=== PATIENT | male | born 2000 | race African-American/Black ===

== ENCOUNTER 2023-01-06 23:06 | Emergency (ER) | payer SELFPAY ==
[~2023-01-06] VITALS: Ht 180.3 cm; Wt 86.0 kg
[2023-01-07] MEDS ORDERED: IBUP-2029 PO (00:30)
[2023-01-07] MEDS ORDERED: IBUPROFEN 600MG TABLET PO ONE (00:30)
[2023-01-07 01:15] VITALS: BP 129/83
== END 2023-01-07 00:30 | disposition home or self-care (01) ==
LOC: ER 23:38
DX: M25.561 Pain in right knee (principal); Z88.0 Allergy status to penicillin
CPT/HCPCS: 99282